=== PATIENT | male | born 2000 | race Caucasian/White ===

== ENCOUNTER 2024-01-07 10:31 | Outpatient (CLI) | payer OTHER, SELFPAY ==
--- NOTE | ~2024-01-07 | US_ITS ---
EXAMINATION: US soft tissue buttock LT DATE: 01/07/2024 11:07 INDICATION: Pelvic mass between the buttocks. TECHNIQUE: Multiple grayscale and Doppler ultrasound images of the region of concern along the glutea l cleft were obtained. COMPARISON: None FINDINGS: There is a 2.4 x 1.8 x 1.7 cm mass versus complex cystic lesion in the region of concern. This is pre dominantly hypoechoic with a few internal punctate and curvilinear echogenic structures. There are so me vascular flow posterior to the lesion but no definitive vascular flow within the lesion on color D oppler. The deep margin of the lesion is in relatively close proximity to the underlying bone likely representing the sacrum. IMPRESSION: 1. 2.4 x 1.8 x 1.7 cm mass versus complex cystic lesion at the region of concern. This could represen t complex pilonidal or epidermoid cyst, abscess in the proper clinical setting or less common etiolog ies including meningocele or neoplasm such as a sacral dermoid. There is no prior imaging for correla tion and would consider further evaluation with either pre and postcontrast MRI or CT particular to a ssess whether there is any extension to involve the sacrum. Reviewed, dictated and finalized at location A. [facility] MANAGER IMPRESSION: 1. 2.4 x 1.8 x 1.7 cm mass versus complex cystic lesion at the region of concer n. This could represent complex pilonidal or epidermoid cyst, abscess in the pr oper clinical setting or less common etiologies including meningocele or neopla sm such as a sacral dermoid. There is no prior imaging for correlation and woul d consider further evaluation with either pre and postcontrast MRI or CT partic ular to assess whether there is any extension to involve the sacrum.
== END 2024-01-07 10:32 | disposition home or self-care (01) ==
LOC: ANHIMG 10:38
PROVIDERS: PCP Family Medicine; Visit Provider Nurse Practitioner Adult Health
DX: R22.2 Localized swelling, mass and lump, trunk (principal)
CPT/HCPCS: 76705